=== PATIENT | female | born 1970 | race Caucasian/White ===

== ENCOUNTER 2023-06-03 13:18 | Emergency (ER) | payer OTHER ==
[~2023-06-03] VITALS: Ht 165.1 cm; Wt 70.8 kg
[2023-06-03 14:35] LABS: HEMATOCRIT 35.1 % (36.0-45.00); HEMOGLOBIN 12.3 g/dL (12.0-15.00); MEAN CELL VOLUME 90.3 fL (80.00-100.00); MEAN CORPUSCULAR HEMOGLOBIN 31.6 pg (27.00-32.0); PLATELET COUNT 241 K/uL (150-450); RED BLOOD COUNT 3.88 M/uL (4.00-6.00); RED CELL DISTRIBUTION WIDTH 13.6 % (11.5-14.5)
[2023-06-03] MEDS ORDERED: PEPCID AC20 MG PO (15:05)
[2023-06-03] MEDS ORDERED: PAXLOVID 300-11 EACH PO (15:05)
[2023-06-03] MEDS ORDERED: TUSNEL LIQUID178 ML PO (15:05)
== END 2023-06-03 15:27 | disposition home or self-care (01) ==
LOC: ER 13:19
PROVIDERS: General Practice
DX: U07.1 COVID-19 (principal); Z88.0 Allergy status to penicillin; Z88.6 Allergy status to analgesic agent